=== PATIENT | male | born 1980 | race Caucasian/White ===

== ENCOUNTER 2017-08-21 19:28 | Emergency (ER) | payer SELFPAY ==
[2017-08-21 21:14] LABS: Anion Gap 21 mmol/L; BUN/Creatinine Ratio 13; Blood Urea Nitrogen 9 mg/dL (9-20); Calcium 9.2 mg/dL (8.4-10.2); Carbon Dioxide 22 mmol/L (22-30); Glucose 95 mg/dL (75-100); Potassium 4.3 mmol/L (3.6-5.0); Sodium 139 mmol/L (137-145)
[2017-08-21 21:21] LABS: Basophils % (Auto) 0.3 % (0.0-1.8); Eosinophils % (Auto) 1.1 % (0.0-4.3); Hematocrit 46.4 % (35.5-45.6); Hemoglobin 15.7 gm/dl (11.8-15.2); Mean Corpuscular HGB Conc 34 % (32-34); Mean Corpuscular Hemoglobin 32 pg (28-32); Mean Corpuscular Volume 95 fl (84-94); Platelet Count 319 K/mm3 (140-440); Red Cell Distribution Width 13.6 % (13.2-15.2); White Blood Count 14.5 K/mm3 (4.5-11.0)
[2017-08-21 22:01] LABS: Bilirubin,Urine NEG (Negative); Blood,Urine MOD (Negative); Ketones,Urine NEG (Negative); Leukocyte Esterase,Urine NEG (Negative); Mucus,Urine FEW /HPF; Nitrite,Urine NEG (Negative); Protein,Urine <15 mg/dL mg/dL (Negative); Urobilinogen,Urine < 2.0 mg/dL (<2.0); WBC,Urine < 1.0 /HPF (0.0-6.0)
[2017-08-22 07:23] VITALS: BP 121/85
--- NOTE | 2017-08-22 07:53 | Emergency Department Report ---
ED General Adult HPI - General Chief complaint: Dizziness Stated complaint: DIZZNESS Time Seen by Provider: 08/22/17 07:40 Source: patient Mode of arrival: Ambulatory Limitations: No Limitations - History of Present Illness Initial comments: This is a 37-year-old male. Patient presents to the ER with a complaint of dizziness, headache, blurry vision. Patient reports consuming a lot of alcohol over Monday, Monday, Monday, and Monday. His symptoms have since resolved. They did not radiate anywhere. He did not have any exacerbating factors or relieving factors and he was aware of. -: Gradual Location: head, eyes Radiation: non-radiation Severity scale (0 -10): 3 Consistency: now resolved Improves with: none Worsens with: none Associated Symptoms: headaches, weakness. denies: confusion - Related Data Allergies Allergy/AdvReac Type Severity Reaction Status Date / Time No Known Allergies Allergy Verified 08/21/17 20:32 ED Review of Systems ROS: Stated complaint: DIZZNESS Other details as noted in HPI Constitutional: denies: fever Eyes: denies: eye discharge ENT: denies: throat pain Respiratory: denies: cough Cardiovascular: denies: chest pain Gastrointestinal: denies: vomiting Genitourinary: as per HPI Musculoskeletal: as per HPI Skin: as per HPI Neurological: headache ED Past Medical Hx - Past Medical History Previous Medical History?: Yes Additional medical history: high cholestrol - Surgical History Past Surgical History?: No - Social History Smoking Status: Current Every Day Smoker Substance Use Type: Alcohol, Cocaine ED Physical Exam - General Limitations: No Limitations General appearance: alert, in no apparent distress - Head Head exam: Present: atraumatic, normocephalic - Eye Eye exam: Present: normal appearance, PERRL, EOMI, other (visual acuity intact to finger counting, color perception, reading at a close distance). Absent: nystagmus - ENT ENT exam: Present: normal exam, normal orophraynx, mucous membranes moist, TM's normal bilaterally, normal external ear exam - Neck Neck exam: Present: normal inspection, full ROM - Respiratory Respiratory exam: Present: normal lung sounds bilaterally. Absent: respiratory distress, chest wall tenderness - Cardiovascular Cardiovascular Exam: Present: regular rate, normal rhythm, normal heart sounds. Absent: systolic murmur, diastolic murmur, rubs, gallop - GI/Abdominal GI/Abdominal exam: Present: soft, normal bowel sounds. Absent: distended, tenderness, guarding, rebound, rigid, pulsatile mass - Rectal Rectal exam: Present: deferred - Extremities Exam Extremities exam: Present: normal inspection, full ROM, normal capillary refill. Absent: pedal edema, joint swelling, calf tenderness - Back Exam Back exam: Present: normal inspection, full ROM. Absent: tenderness, CVA tenderness (R), paraspinal tenderness, vertebral tenderness - Neurological Exam Neurological exam: Present: alert, oriented X3, CN II-XII intact, normal gait ( negative pronator drift. Negative Romberg examination normal [id number], normal gait, normal tandem gait), other (Extraocular movements intact. Tongue midline. No facial droop. Facial sensation intact to light touch in the V1, V2 , V3 distribution bilaterally. 5 and 5 strength in 4 extremities.. Sensation is intact to light touch in 4 extremities.). Absent: motor sensory deficit - Psychiatric Psychiatric exam: Present: normal affect, normal mood - Skin Skin exam: Present: warm, dry, intact, normal color. Absent: rash ED Course Vital Signs 08/21/17 08/21/17 08/22/17 20:21 20:26 01:53 Temperature 98.0 F 98.0 F 98.1 F Pulse Rate 80 71 77 Respiratory 18 18 18 Rate Blood Pressure 128/85 128/85 130/83 O2 Sat by Pulse 98 98 98 Oximetry 08/22/17 08/22/17 08/22/17 02:55 03:00 03:15 Temperature Pulse Rate 80 68 64 Respiratory 17 16 12 Rate Blood Pressure 117/78 117/78 O2 Sat by Pulse 99 96 96 Oximetry 08/22/17 08/22/17 08/22/17 03:30 03:32 03:45 Temperature Pulse Rate 64 64 Respiratory 14 16 15 Rate Blood Pressure 113/74 113/74 O2 Sat by Pulse 97 98 98 Oximetry 08/22/17 08/22/17 08/22/17 04:00 04:15 04:31 Temperature Pulse Rate 67 64 66 Respiratory 12 14 16 Rate Blood Pressure 122/90 122/90 122/90 O2 Sat by Pulse 96 97 99 Oximetry 08/22/17 08/22/17 08/22/17 04:45 05:01 05:15 Temperature Pulse Rate 63 69 82 Respiratory 13 13 19 Rate Blood Pressure 122/90 122/90 122/90 O2 Sat by Pulse 99 100 97 Oximetry 08/22/17 08/22/17 08/22/17 05:39 05:45 06:00 Temperature Pulse Rate 75 69 67 Respiratory 16 14 15 Rate Blood Pressure 122/90 122/90 116/81 O2 Sat by Pulse 99 98 Oximetry 08/22/17 08/22/17 08/22/17 06:15 06:30 06:45 Temperature Pulse Rate 66 65 60 Respiratory 16 18 15 Rate Blood Pressure 116/81 111/73 111/73 O2 Sat by Pulse 97 97 97 Oximetry 08/22/17 08/22/17 07:00 07:15 Temperature Pulse Rate 61 66 Respiratory 10 L 19 Rate Blood Pressure 121/85 121/85 O2 Sat by Pulse 96 99 Oximetry ED Medical Decision Making - Lab Data Result diagrams: 08/21/17 20:37 08/21/17 20:37 Vital Signs 08/21/17 08/21/17 08/22/17 20:21 20:26 01:53 Temperature 98.0 F 98.0 F 98.1 F Pulse Rate 80 71 77 Respiratory 18 18 18 Rate Blood Pressure 128/85 128/85 130/83 O2 Sat by Pulse 98 98 98 Oximetry 08/22/17 08/22/17 08/22/17 02:55 03:00 03:15 Temperature Pulse Rate 80 68 64 Respiratory 17 16 12 Rate Blood Pressure 117/78 117/78 O2 Sat by Pulse 99 96 96 Oximetry 08/22/17 08/22/17 08/22/17 03:30 03:32 03:45 Temperature Pulse Rate 64 64 Respiratory 14 16 15 Rate Blood Pressure 113/74 113/74 O2 Sat by Pulse 97 98 98 Oximetry 08/22/17 08/22/17 08/22/17 04:00 04:15 04:31 Temperature Pulse Rate 67 64 66 Respiratory 12 14 16 Rate Blood Pressure 122/90 122/90 122/90 O2 Sat by Pulse 96 97 99 Oximetry 08/22/17 08/22/17 08/22/17 04:45 05:01 05:15 Temperature Pulse Rate 63 69 82 Respiratory 13 13 19 Rate Blood Pressure 122/90 122/90 122/90 O2 Sat by Pulse 99 100 97 Oximetry 08/22/17 08/22/17 08/22/17 05:39 05:45 06:00 Temperature Pulse Rate 75 69 67 Respiratory 16 14 15 Rate Blood Pressure 122/90 122/90 116/81 O2 Sat by Pulse 99 98 Oximetry 08/22/17 08/22/17 08/22/17 06:15 06:30 06:45 Temperature Pulse Rate 66 65 60 Respiratory 16 18 15 Rate Blood Pressure 116/81 111/73 111/73 O2 Sat by Pulse 97 97 97 Oximetry 08/22/17 08/22/17 07:00 07:15 Temperature Pulse Rate 61 66 Respiratory 10 L 19 Rate Blood Pressure 121/85 121/85 O2 Sat by Pulse 96 99 Oximetry Lab Results 08/21/17 08/21/17 08/21/17 Range/Units 20:37 20:37 Unknown WBC 14.5 H (4.5-11.0) K/mm3 RBC 4.90 (3.65-5.03) M/mm3 Hgb 15.7 H (11.8-15.2) gm/dl Hct 46.4 H (35.5-45.6) % MCV 95 H (84-94) fl MCH 32 (28-32) pg MCHC 34 (32-34) % RDW 13.6 (13.2-15.2) % Plt Count 319 (140-440) K/mm3 Lymph % (Auto) 15.0 (13.4-35.0) % [place] % (Auto) 6.7 (0.0-7.3) % Eos % (Auto) 1.1 (0.0-4.3) % Baso % (Auto) 0.3 (0.0-1.8) % Lymph # 2.2 (1.2-5.4) K/mm3 [place] # 1.0 H (0.0-0.8) K/mm3 Eos # 0.2 (0.0-0.4) K/mm3 Baso # 0.0 (0.0-0.1) K/mm3 Seg Neutrophils % 76.9 H (40.0-70.0) % Seg Neutrophils # 11.1 H (1.8-7.7) K/mm3 Sodium 139 (137-145) mmol/L Potassium 4.3 (3.6-5.0) mmol/L Chloride 100.0 (98-107) mmol/L Carbon Dioxide 22 (22-30) mmol/L Anion Gap 21 mmol/L BUN 9 (9-20) mg/dL Creatinine 0.7 L (0.8-1.5) mg/dL Estimated GFR > 60 ml/min BUN/Creatinine Ratio 13 % Glucose 95 (75-100) mg/dL Calcium 9.2 (8.4-10.2) mg/dL Urine Color Yellow (Yellow) Urine Turbidity Clear (Clear) Urine pH 5.0 (5.0-7.0) Ur Specific [place] 1.014 (1.003-1.030) Urine Protein <15 mg/dl (Negative) mg/dL Urine Glucose (UA) Neg (Negative) mg/dL Urine Ketones Neg (Negative) mg/dL Urine Blood Mod (Negative) Urine Nitrite Neg (Negative) Urine Bilirubin Neg (Negative) Urine Urobilinogen < 2.0 (<2.0) mg/dL Ur Leukocyte Esterase Neg (Negative) Urine WBC (Auto) < 1.0 (0.0-6.0) /HPF Urine RBC (Auto) 2.0 (0.0-6.0) /HPF Hyaline Casts 1 /LPF Urine Mucus Few /HPF - EKG Data -: EKG Interpreted by Me - EKG Data When compared to previous EKG there are: previous EKG unavailable 08/22/17 07:50 Normal sinus, 77 bpm, normal axis, normal intervals, not morphologically consistent with ST elevation myocardial infarction - Medical Decision Making Differential diagnosis, including but not limited to: Alcohol intoxication, side effects of alcohol, dehydration Assessment and plan: 37-year-old male who to me complains of a sensation of room spinning, generalized weakness, feeling unsteady on his feet after drinking alcohol over the whole weekend, including Monday night, Monday, Monday, and Monday. Patient reports that his symptoms started yesterday at 5: 00 PM, he reports his last alcoholic beverage was at approximately 3:00 PM yesterday. Nursing documentation is reviewed and appreciated, however to me, the patient does not endorse chest pain, he does not endorse shortness of breath. When I go to evaluate the patient he is sleeping in a stretcher and in no distress. He is alert and oriented 3, clinically sober, walks with steady gait , and has unremarkable thorough and detailed neurologic examination. Laboratory studies were unremarkable, suggested dehydration, patient has no neck pain or neck stiffness, and his whole physical exam appears to be unremarkable and he denies complaints at this time. The patient is encouraged to moderate alcohol consumption in the future, it does not appear to be an emergent condition at this time, given that he is sober without neurologic complaints or deficits on exam, and I believe the patient requires advanced imaging and will be discharged at this time. Critical care attestation.: If time is entered above; I have spent that time in minutes in the direct care of this critically ill patient, excluding procedure time. ED Disposition Clinical Impression: History of alcohol use Disposition: DC-01 TO HOME OR SELFCARE Is pt being admited?: No Does the pt Need Aspirin: No Condition: Stable Instructions: Abuse of Alcohol (ED) Additional Instructions: In the future, make certain to moderate alcohol consumption. Do not drink and drive. Follow up with a primary care doctor within the next 2 weeks. Return to the ER right away with new pain, worsened pain, migration of pain, fevers, chills, lethargy, irritability, projectile vomiting, confusion, change in mental status, inability to tolerate feeds. Referrals: PRIMARY CARE [Primary Care Provider] - 3-5 Days [facility] [Provider Group] - 3-5 Days
== END 2017-08-22 08:13 | disposition home or self-care (01) ==
LOC: ED 19:28
DX: F10.99 Alcohol use, unspecified with unspecified alcohol-induced disorder (principal); Y90.9 Presence of alcohol in blood, level not specified; F17.200 Nicotine dependence, unspecified, uncomplicated; E78.00 Pure hypercholesterolemia, unspecified; F14.10 Cocaine abuse, uncomplicated
CPT/HCPCS: 36415; 80048; 81001; 85025; 93005; 93010; 99283

== ENCOUNTER 2017-09-10 00:10 | Emergency (ER) | payer OTHER ==
--- NOTE | 2017-09-10 01:35 | XRay Report ---
FINAL REPORT EXAM: XR CHEST ROUTINE 2V HISTORY: chest pain COMPARISON: None available. FINDINGS:: Frontal and lateral views of the chest obtained. Cardiac silhouette is within normal limits. No focal consolidation or effusion. No pneumothorax. Visualized bony thorax is grossly intact. IMPRESSION:: No acute findings.
[2017-09-10 01:42] LABS: Basophils % (Auto) 0.7 % (0.0-1.8); Eosinophils % (Auto) 2.4 % (0.0-4.3); Hematocrit 46.7 % (35.5-45.6); Hemoglobin 15.9 gm/dl (11.8-15.2); Mean Corpuscular HGB Conc 34 % (32-34); Mean Corpuscular Hemoglobin 32 pg (28-32); Mean Corpuscular Volume 93 fl (84-94); Platelet Count 260 K/mm3 (140-440); Red Blood Count 5.04 M/mm3 (3.65-5.03); Red Cell Distribution Width 12.9 % (13.2-15.2); White Blood Count 10.3 K/mm3 (4.5-11.0)
[2017-09-10 01:44] LABS: Anion Gap 16 mmol/L; BUN/Creatinine Ratio 16; Blood Urea Nitrogen 11 mg/dL (9-20); Calcium 9.4 mg/dL (8.4-10.2); Carbon Dioxide 25 mmol/L (22-30); Chloride 101.3 mmol/L (98-107); Glucose 159 mg/dL (75-100); Potassium 3.9 mmol/L (3.6-5.0); Sodium 138 mmol/L (137-145)
[2017-09-10 05:59] LABS: Urine Drugs of Abuse Note Disclamer
[2017-09-10 06:02] VITALS: BP 115/84
[2017-09-10 06:27] LABS: Bilirubin,Urine NEG (Negative); Blood,Urine SM (Negative); Ketones,Urine TR mg/dL (Negative); Leukocyte Esterase,Urine NEG (Negative); Mucus,Urine FEW /HPF; Nitrite,Urine NEG (Negative); Protein,Urine <15 mg/dL mg/dL (Negative); Urobilinogen,Urine < 2.0 mg/dL (<2.0); WBC,Urine < 1.0 /HPF (0.0-6.0)
--- NOTE | 2017-09-10 06:48 | Emergency Department Report ---
ED General Adult HPI - General Chief complaint: Dizziness Stated complaint: NAUSEA, DIZZINESS,ANXIOUS, OVERWHELMED, LOSS OF BA Time Seen by Provider: 09/10/17 06:19 Source: patient Mode of arrival: Ambulatory Limitations: No Limitations - History of Present Illness Initial comments: Patient has a number of symptoms to include dizziness but not difficulty in gait. He is not complaining of chest pain. He states he has some tingling in his feet. He does not report any difficulty breathing or recent travel. He doesn't have a primary care physician. He is visiting the emergency department as such. He denies fever or chills. He has not been coughing. He does complain of any GI or symptoms. He denies vertigo or headache. He denies difficulty with speech or coordination. History obtained in Hungarian. -: week(s) Improves with: none Worsens with: none Associated Symptoms: denies other symptoms - Related Data Allergies Allergy/AdvReac Type Severity Reaction Status Date / Time No Known Allergies Allergy Verified 08/21/17 20:32 ED Review of Systems ROS: Stated complaint: NAUSEA, DIZZINESS,ANXIOUS, OVERWHELMED, LOSS OF BA Other details as noted in HPI Constitutional: other. denies: chills, fever Eyes: denies: eye pain, eye discharge, vision change ENT: denies: ear pain, throat pain Respiratory: denies: cough, shortness of breath, wheezing Cardiovascular: denies: chest pain, palpitations Endocrine: no symptoms reported Gastrointestinal: denies: abdominal pain, nausea, diarrhea Genitourinary: denies: urgency, dysuria Musculoskeletal: denies: back pain, joint swelling, arthralgia Skin: denies: rash, lesions Neurological: denies: headache, weakness, paresthesias Psychiatric: denies: anxiety, depression Hematological/Lymphatic: denies: easy bleeding, easy bruising ED Past Medical Hx - Past Medical History Previous Medical History?: Yes Additional medical history: high cholestrol - Surgical History Past Surgical History?: No - Social History Smoking Status: Current Every Day Smoker Substance Use Type: Alcohol ED Physical Exam - General Limitations: No Limitations General appearance: alert, in no apparent distress - Head Head exam: Present: atraumatic, normocephalic - Eye Eye exam: Present: normal appearance, PERRL, EOMI. Absent: scleral icterus - ENT ENT exam: Present: mucous membranes moist - Neck Neck exam: Present: normal inspection - Respiratory Respiratory exam: Present: normal lung sounds bilaterally. Absent: respiratory distress - Cardiovascular Cardiovascular Exam: Present: regular rate, normal rhythm. Absent: systolic murmur, diastolic murmur, rubs, gallop - GI/Abdominal GI/Abdominal exam: Present: soft, normal bowel sounds. Absent: distended, tenderness, guarding, rebound, rigid - Rectal Rectal exam: Present: deferred - Extremities Exam Extremities exam: Present: normal inspection - Back Exam Back exam: Present: normal inspection - Neurological Exam Neurological exam: Present: alert, oriented X3, CN II-XII intact. Absent: motor sensory deficit - Psychiatric Psychiatric exam: Present: normal affect, normal mood - Skin Skin exam: Present: warm, dry, intact, normal color. Absent: rash ED Course Vital Signs 09/10/17 09/10/17 09/10/17 00:49 05:04 05:16 Temperature 97.5 F L Pulse Rate 78 65 53 L Respiratory 14 13 Rate Blood Pressure 136/82 126/88 O2 Sat by Pulse 97 99 Oximetry 09/10/17 09/10/17 05:30 05:46 Temperature Pulse Rate 55 L 58 L Respiratory 15 16 Rate Blood Pressure 129/81 115/84 O2 Sat by Pulse 99 98 Oximetry ED Medical Decision Making - Lab Data Result diagrams: 09/10/17 01:08 09/10/17 01:08 Laboratory Results - last 24 hr 09/10/17 09/10/17 09/10/17 01:08 01:08 03:44 WBC 10.3 RBC 5.04 H Hgb 15.9 H Hct 46.7 H MCV 93 MCH 32 MCHC 34 RDW 12.9 L Plt Count 260 Lymph % (Auto) 28.7 [place] % (Auto) 6.3 Eos % (Auto) 2.4 Baso % (Auto) 0.7 Lymph # 3.0 [place] # 0.6 Eos # 0.2 Baso # 0.1 Seg Neutrophils % 61.9 Seg Neutrophils # 6.4 Sodium 138 Potassium 3.9 Chloride 101.3 Carbon Dioxide 25 Anion Gap 16 BUN 11 Creatinine 0.7 L Estimated GFR > 60 BUN/Creatinine Ratio 16 Glucose 159 H Calcium 9.4 Troponin T < 0.010 < 0.010 Urine Color Urine Turbidity Urine pH Ur Specific [place] Urine Protein Urine Glucose (UA) Urine Ketones Urine Blood Urine Nitrite Urine Bilirubin Urine Urobilinogen Ur Leukocyte Esterase Urine WBC (Auto) Urine RBC (Auto) Urine Mucus Urine Opiates Screen Urine Methadone Screen Ur Barbiturates Screen Ur Phencyclidine Scrn Ur Amphetamines Screen U Benzodiazepines Scrn Urine Cocaine Screen U Marijuana (THC) Screen 09/10/17 09/10/17 Unknown Unknown WBC RBC Hgb Hct MCV MCH MCHC RDW Plt Count Lymph % (Auto) [place] % (Auto) Eos % (Auto) Baso % (Auto) Lymph # [place] # Eos # Baso # Seg Neutrophils % Seg Neutrophils # Sodium Potassium Chloride Carbon Dioxide Anion Gap BUN Creatinine Estimated GFR BUN/Creatinine Ratio Glucose Calcium Troponin T Urine Color Yellow Urine Turbidity Clear Urine pH 5.0 Ur Specific [place] 1.016 Urine Protein <15 mg/dl Urine Glucose (UA) Neg Urine Ketones Tr Urine Blood Sm Urine Nitrite Neg Urine Bilirubin Neg Urine Urobilinogen < 2.0 Ur Leukocyte Esterase Neg Urine WBC (Auto) < 1.0 Urine RBC (Auto) 7.0 Urine Mucus Few Urine Opiates Screen Presumptive negative Urine Methadone Screen Presumptive negative Ur Barbiturates Screen Presumptive negative Ur Phencyclidine Scrn Presumptive negative Ur Amphetamines Screen Presumptive negative U Benzodiazepines Scrn Presumptive negative Urine Cocaine Screen Presumptive positive U Marijuana (THC) Screen Presumptive negative Critical care attestation.: If time is entered above; I have spent that time in minutes in the direct care of this critically ill patient, excluding procedure time. ED Disposition Clinical Impression: Dizziness, Hyperglycemia Disposition: DC-01 TO HOME OR SELFCARE Is pt being admited?: No Does the pt Need Aspirin: No Condition: Stable Instructions: Dizziness (ED) Additional Instructions: Follow up a primary care setting. Further evaluation in this setting is recommended. I did not find any acute indications for hospitalization at this time. Your sugar is somewhat elevated. Further testing is necessary to determine if you need to be on medication. This will be done in the primary care setting. Referrals: PRIMARY CARE [Primary Care Provider] - 3-5 Days [facility] [Provider Group] - 2-3 Days Time of Disposition: 06:47
== END 2017-09-10 07:05 | disposition home or self-care (01) ==
LOC: ED 00:10
DX: R42 Dizziness and giddiness (principal); R73.9 Hyperglycemia, unspecified; E78.00 Pure hypercholesterolemia, unspecified; F17.200 Nicotine dependence, unspecified, uncomplicated; Z79.899 Other long term (current) drug therapy
CPT/HCPCS: 36415; 71020; 80048; 80307; 81001; 84484; 85025; 93005; 93010; 99284